=== PATIENT | male | born 1970 | race Caucasian/White ===

== ENCOUNTER 2024-12-31 17:30 | Emergency (ER) | payer SELFPAY ==
[2024-12-31 18:15] VITALS: BP 148/88
[2024-12-31 18:45] LABS: % Basophils 0.1 % (0-2); % Eosinophils 0.1 % (0-6); % Immature Granulocytes 0.4 % (0-0.5); % Lymphocytes 2.3 % (20.5-51.1); % Monocytes 4.6 % (1.7-9.3); % Neutrophils 92.5 % (42.2-75.2); Absolute Immature Granulocytes 0.1 10^3/uL (0-0.05); Absolute Lymphocytes 0.3 10^3/uL (1.2-3.4); Absolute Monocytes 0.6 10^3/uL (0.1-0.6); Hematocrit 50.8 % (39.0-52.0); Hemoglobin 18.3 g/dL (13.0-18.0); Mean Corpuscular Hgb 30.9 pg (27.0-31.0); Mean Corpuscular Volume 85.8 fL (80.0-94.0); Mean Platelet Volume 10.9 fL (7.4-10.4); Nucleated Red Blood Cells % 0 % (-); Platelet Count 227 10^3/uL (130-400); Red Blood Cell Count 5.92 10^6/uL (4.70-6.10); Red Cell Dist. Width 13.1 % (11.5-14.5); White Blood Cell Count 14.1 10^3/uL (4.8-10.8)
[2024-12-31 18:55] LABS: ALT (SGPT) 22 U/L (0-50); AST (SGOT) 21 U/L (17-59); Albumin 4.6 g/dl (3.5-5.0); Alkaline Phosphatase 66 U/L (38-126); Blood Urea Nitrogen 21 mg/dl (9-20); Calcium 8.9 mg/dl (8.4-10.2); Carbon Dioxide 26 mmol/L (22-30); Chloride 97 mmol/L (98-107); Glucose 150 mg/dl (70-99); Lipase 72 U/L (23-300); Potassium 4.4 mmol/L (3.5-5.1); Sodium 133 mmol/L (135-145); Total Bilirubin 1.1 mg/dl (0.2-1.3); eGFR > 60.00
--- NOTE | 2024-12-31 21:13 | ED.GENMED ---
History of Present Illness
General
Chief Complaint: Abdominal Symptoms
Source: patient
Exam Limitations: none
Time Seen by Provider: 12/31/24 21:04
History of Present Illness
History of Present Illness:
54yoM with no significant past medical history presenting for evaluation of vomiting and diarrhea. Patient [place] chicken salad [place] [facility] [place] 11:30 PM last night. He woke up around 3 AM with nausea. He has been vomiting consistently
since then. He states he has vomited at least a half a gallon of liquid. Last episode of vomiting was on arrival to the ED. He is able to tolerate ice chips. He denies any current abdominal pain, fevers, hematochezia.
Phy Exam
General Physical Exam
General Presentation: well appearing and no apparent distress
General age: appears stated age
General Skin: warm and dry
General Habitus: normal
General Mental: alert
ENT Exam
ENT Exam: normocephalic
Pulmonary Exam
Pulmonary Exam: no respiratory distress
Gastrointestinal Exam
Gastrointestinal Exam: non tender, soft and non distended
Neurological Exam
Neurological Exam: alert
Michael Coma Scale
Eye Opening: Spontaneous
Verbal Response: Oriented
Motor Response: Obeys Commands
GCS Total Score: 15
Skin Exam
Skin Exam: normal color and warm/dry
Psychiatric Exam
Psychiatric Exam: normal mood/affect
Course
Orders/Labs/Results
Orders:
Orders
12/31/24 18:36
Complete Blood Count/With Diff Urgent
Comprehensive Metabolic Panel Urgent
Lipase Urgent
12/31/24 21:04
0.9% Sodium Chloride 1000 ml [Nss] 1,000 ml IV BOLUS
12/31/24 21:11
Ketorolac [Toradol] 15 mg IV NOW STA
Ondansetron Injectable [Zofran] 4 mg IV NOW STA
12/31/24 21:57
Ondansetron Injectable [Zofran] 4 mg .ROUTE .STK-MED ONE
Abnormal Lab Results
12/31/24
18:36
WBC 14.1 H 10^3/uL
(4.8-10.8)
Hgb 18.3 H g/dL
(13.0-18.0)
MPV 10.9 H fL
(7.4-10.4)
Abs Immat Gran (auto) 0.1 H 10^3/uL
(0-0.05)
Absolute Neuts (auto) 13.0 H 10^3/uL
(1.4-6.5)
Absolute Lymphs (auto) 0.3 L 10^3/uL
(1.2-3.4)
Neutrophils % 92.5 H %
(42.2-75.2)
Lymphocytes % 2.3 L %
(20.5-51.1)
Sodium 133 L mmol/L
(135-145)
Chloride 97 L mmol/L
(98-107)
BUN 21 H mg/dl
(9-20)
Glucose 150 H mg/dl
(70-99)
12/31/24 18:36
12/31/24 18:36
Vital Signs
Initial and Last Documented VS:
Initial Vital Signs
Temp Pulse Resp BP Pulse Ox
97.8 F 110 16 148/88 98
12/31/24 18:15 12/31/24 18:15 12/31/24 18:15 12/31/24 18:15 12/31/24 18:15
Last Documented Vital Signs
Temp Pulse Resp BP Pulse Ox
97.8 F 110 16 148/88 98
12/31/24 18:15 12/31/24 18:15 12/31/24 18:15 12/31/24 18:15 12/31/24 18:15
MDM/Problems Addressed
Differential Diagnosis Includes:
54yoM here with nausea, vomiting, and diarrhea since last night. Started after eating a chicken salad sandwich. Feels like he has food poisoning. Denies fevers. HR 110 in triage. Remainder of vitals are stable. He is well appearing in no distress.
Abdominal exam is benign. Differential diagnosis includes but is not limited to: gastroenteritis, viral illness, dehydration
Initial ED plan: Labs obtained in triage. White count is 14 which is likely reactive 2/2 vomiting. Mild hyponatremia and hypochloremia noted consistent with mild dehydration. Renal function stable. Will defer imaging at this time given benign exam.
IV Toradol, Zofran, and fluid bolus for symptoms.
*Critical Care Note
Total Time (30-74mins, 75-104mins- exclusive of procedures): Not Applicable
Update Note
Update Note:
Patient feeling improved on reassessment. He is able to tolerate ice chips. No indication for hospitalization at this time. Suspect viral gastroenteritis. Prescription provided for Zofran and supportive care discussed. Advised close follow-up
with PCP and ED return precautions discussed. Patient in agreement with plan and was discharged in stable condition.
ED Attending Note
-
Portions of this chart may have been created with voice recognition software.� Occasional wrong word or��sound alike� substitutions may have occurred due to the inherent limitations of voice recognition software.
Discharge Plan
Departure
Patient Disposition: Home (Routine Discharge)
Date of Disposition: 12/31/24
Time of Disposition: 22:25
Patient with high blood pressure during this ER visit?: Yes
Discharge Problem:
Gastroenteritis
Instructions: Food poisoning
Prescriptions:
New
ondansetron 4 mg tablet,disintegrating
4 mg PO Q6H PRN (Reason: nausea and vomiting) Qty: 20 0RF
Activity Restrictions/Additional Instructions:
Take Zofran as needed for nausea. Drink plenty of fluids and eat a bland diet (bananas, rice, applesauce, toast).
Please follow-up with your family doctor. Return to the ER with any worsening symptoms or if you are unable to keep down liquids.
Interventions
Interventions:
*Risk Screen - Suicide Last Done: 12/31/24 18:15
*Neglect/Abuse Screening Last Done: 12/31/24 18:15
Discharge Date and Time
Print Language: CITIZEN OF [place]
[2024-12-31] MEDS: ZOFRAN 4 MG IV (21:55)
[2024-12-31] MEDS: NSS 1000 IV (21:56)
[2024-12-31] MEDS: TORADOL 15 MG IV (21:56)
[2024-12-31 23:30] VITALS: BP 129/78
== END 2024-12-31 23:15 | disposition home or self-care (01) ==
LOC: EMR 17:30
PROVIDERS: Student in an Organized Health Care Education/Training Program; EMERGENCY PHYSICIAN Student in an Organized Health Care Education/Training Program; FAMILY PHYSICIAN Internal Medicine
DX: K52.9 Noninfective gastroenteritis and colitis, unspecified (principal)
CPT/HCPCS: 96374; 96375; 96361; 99284; 80053; 83690; 85025